=== PATIENT | male | born 1990 | race Caucasian/White ===

== ENCOUNTER 2017-06-03 12:59 | Emergency (ER) | payer SELFPAY ==
[2017-06-03] MEDS ORDERED: MORPHINE ONE ×2 (13:32→14:32)
[2017-06-03] MEDS ORDERED: NACL 0.9% 1000 ML 1,000 ML ONE (13:32)
[2017-06-03] MEDS ORDERED: ZOFRAN ONE (13:32)
[2017-06-03] MEDS ORDERED: MORPHINE IV ONE ×2 (13:37→14:43)
[2017-06-03] MEDS ORDERED: ZOFRAN IV ONE (13:37)
[2017-06-03] MEDS ORDERED: NACL 0.9% 1000 ML 1,000 ML IV ONE (13:37)
[2017-06-03 13:53] LABS: Hematocrit 43.6 % (35.5-45.6); Mean Corpuscular HGB Conc 35 % (32-34); Mean Corpuscular Hemoglobin 30 pg (28-32); Mean Corpuscular Volume 88 fl (84-94); Platelet Count 294 K/mm3 (140-440); Red Blood Count 4.95 M/mm3 (3.65-5.03); Red Cell Distribution Width 13.1 % (13.2-15.2); White Blood Count 10.5 K/mm3 (4.5-11.0)
[2017-06-03] MEDS ORDERED: BOOSTRIX IM ONE (14:00)
[2017-06-03 14:06] LABS: INR 1.01 (0.87-1.13)
[2017-06-03 14:07] LABS: Partial Thromboplastin Time 27.5 Sec. (24.2-36.6)
[2017-06-03 14:11] LABS: Alanine Aminotransferase 100 units/L (7-56); Albumin 4.6 g/dL (3.9-5); Albumin/Globulin Ratio 1.5 %; Alkaline Phosphatase 83 units/L (35-129); Anion Gap 19 mmol/L; Blood Urea Nitrogen 14 mg/dL (9-20); Calcium 9.1 mg/dL (8.4-10.2); Carbon Dioxide 25 mmol/L (22-30); Chloride 98.5 mmol/L (98-107); Glucose 102 mg/dL (75-100); Potassium 3.9 mmol/L (3.6-5.0); Sodium 139 mmol/L (137-145); Total Protein 7.7 g/dL (6.3-8.2)
--- NOTE | 2017-06-03 14:13 | Emergency Department Report ---
- General Chief Complaint: Wound/Laceration Stated Complaint: RT FOOT INJURY Time Seen by Provider: 06/03/17 13:50 Source: patient Mode of arrival: Wheelchair Limitations: No Limitations - History of Present Illness Initial Comments: 27-year-old male cut into his foot approximately one hour prior to arrival with a skill saw. Patient with significant leading at scene. Able to 3 of his 5 toes. Moderate amount of pain. He cut through a steel toed boot. No history of ever having a tetanus immunization. No allergies. -: Sudden Extremity Location: Right: Ankle Place: work Patient Tetanus UTD: No Context: accidental Associated Symptoms: loss of feeling/numbness, unable to move injured part - Related Data Allergies Allergy/AdvReac Type Severity Reaction Status Date / Time No Known Allergies Allergy Verified 06/03/17 13:36 ED Review of Systems ROS: Stated complaint: RT FOOT INJURY Other details as noted in HPI Constitutional: denies: chills, fever Eyes: denies: eye pain, eye discharge, vision change ENT: denies: ear pain, throat pain Respiratory: denies: cough, shortness of breath, wheezing Cardiovascular: denies: chest pain, palpitations Endocrine: no symptoms reported Gastrointestinal: denies: abdominal pain, nausea, diarrhea Genitourinary: denies: urgency, dysuria Musculoskeletal: denies: back pain, joint swelling, arthralgia Skin: denies: rash, lesions Neurological: denies: headache, weakness, paresthesias Psychiatric: denies: anxiety, depression Hematological/Lymphatic: denies: easy bleeding, easy bruising ED Past Medical Hx - Past Medical History Previous Medical History?: No - Surgical History Past Surgical History?: No - Social History Smoking Status: Never Smoker Substance Use Type: Alcohol ED Physical Exam - General Limitations: No Limitations, 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), Other General appearance: alert, in no apparent distress - Head Head exam: Present: atraumatic, normocephalic - Eye Eye exam: Present: normal appearance - Respiratory Respiratory exam: Present: normal lung sounds bilaterally, respiratory distress - Cardiovascular Cardiovascular Exam: Present: regular rate, normal rhythm - Expanded Lower Extremity Exam Right Foot/Toe exam: Present: laceration (laceration to the dorsum of the foot - mid foot to 4th digit extending through 4th digit, spell his tendons and bone.), amputation (dictation of the fourth digit, ) Neuro vascular tendon exam: Present: sensory deficit. Absent: pulse deficit - Back Exam Back exam: Present: normal inspection, full ROM - Neurological Exam Neurological exam: Present: alert, oriented X3 ED Course Vital Signs 06/03/17 06/03/17 06/03/17 13:23 13:35 13:40 Temperature 98.7 F Pulse Rate 84 Respiratory 18 20 20 Rate Blood Pressure 144/95 O2 Sat by Pulse 100 100 Oximetry 06/03/17 06/03/17 14:05 14:44 Temperature Pulse Rate Respiratory 20 20 Rate Blood Pressure O2 Sat by Pulse Oximetry ED Medical Decision Making - Lab Data Result diagrams: 06/03/17 13:46 06/03/17 13:46 Laboratory Results - last 24 hr 06/03/17 06/03/17 06/03/17 13:46 13:46 13:48 WBC 10.5 RBC 4.95 Hgb 15.0 Hct 43.6 MCV 88 MCH 30 MCHC 35 H RDW 13.1 L Plt Count 294 Eos % (Auto) Street Openings Inspector PT INR APTT Sodium 139 Potassium 3.9 Chloride 98.5 Carbon Dioxide 25 Anion Gap 19 BUN 14 Creatinine 0.8 Estimated GFR > 60 BUN/Creatinine Ratio 17.50 Glucose 102 H Calcium 9.1 Total Bilirubin 1.00 AST 47 H ALT 100 H Alkaline Phosphatase 83 Total Protein 7.7 Albumin 4.6 Albumin/Globulin Ratio 1.5 Blood Type O POSITIVE Antibody Screen Negative 06/03/17 13:48 WBC RBC Hgb Hct MCV MCH MCHC RDW Plt Count Eos % (Auto) PT 13.2 INR 1.01 APTT 27.5 Sodium Potassium Chloride Carbon Dioxide Anion Gap BUN Creatinine Estimated GFR BUN/Creatinine Ratio Glucose Calcium Total Bilirubin AST ALT Alkaline Phosphatase Total Protein Albumin Albumin/Globulin Ratio Blood Type Antibody Screen - Medical Decision Making Patient with a skill saw injury to the right foot. The laceration extends from the middle of the foot to the proximal phalanx of the fourth digit. He has good pulses. He has never had a tetanus shot. Bleeding appears controlled. Plan to give IV antibiotics and transfer to trauma center where he can have wound repaired. Discussed the case with Dr. Martin at [facility] and they accepted the patient in transfer. Patient remains hemodynamically stable in the emergency department. Portions of this chart were dictated with dictation software. There may be dictation errors contained within this note. Critical Care Time: Yes Critical care time in (mins) excluding proc time.: 30 Critical care attestation.: If time is entered above; I have spent that time in minutes in the direct care of this critically ill patient, excluding procedure time. Critical Care Time: 30 ED Disposition Clinical Impression: Foot laceration, Amputated toe of right foot, Open fracture of left toe Disposition: [id number] ANOTHER TYPE HLTHCARE Is pt being admited?: No Condition: Stable
[2017-06-03] MEDS: ceFAZolin 2 GM in NACL 0.9% 100 ML IV ONE ×2 (14:43→16:20)
[2017-06-03 15:29] VITALS: BP 147/78
[2017-06-03 16:24] LABS: Blastocytes % (Manual) 0 %
[2017-06-03 16:25] LABS: Basophils % (Manual) 0 % (0.0-1.8); Diff Status Complete; RBC Morphology Normal
--- NOTE | 2017-06-04 09:25 | XRay Report ---
Right foot 3 views: History: Injury to right foot. Findings: There is fracture/postsurgical change at mid diaphyses of proximal phalanx fourth toe. No periosteal reaction. First, second, third and fifth toe appears unremarkable. Impression: Findings as described.
== END 2017-06-03 16:22 | disposition other institution (70) ==
LOC: ED 12:59
DX: S91.311A Laceration without foreign body, right foot, initial encounter (principal); S92.912B Unspecified fracture of left toe(s), initial encounter for open fracture; X58.XXXA Exposure to other specified factors, initial encounter; Y93.89 Activity, other specified; Y92.89 Other specified places as the place of occurrence of the external cause; Y99.8 Other external cause status
CPT/HCPCS: 36415; 73630; 80053; 85007; 85025; 85610; 85730; 86850; 86900; 86901; 90471; 90715; 96361; 96374; 96375; 96376; 99291; J0690; J2270; J2405; J7030